=== PATIENT | female | born 1965 | race Caucasian/White ===

== ENCOUNTER 2022-02-19 16:46 | Outpatient (CLI) | payer OTHER ==
[2022-02-19 17:33] LABS: T4 (THYROXINE) 3.54 ug/dL (6.09-12.23)
[2022-02-19 17:36] LABS: THYROID STIMULATING HORMONE 0.46 uIU/mL (0.34-5.60)
[2022-02-19 17:37] LABS: FREE T3 2.86 pg/mL (2.5-3.9)
[2022-02-19 17:38] LABS: FREE T4 (FREE THYROXINE) 0.55 ng/dL (0.58-1.64)
== END 2022-02-19 16:47 | disposition home or self-care (01) ==
LOC: LAB 16:46
PROVIDERS: ATTEND Naturopath
DX: E06.3 Autoimmune thyroiditis (principal)
CPT/HCPCS: 36415; 84436; 84439; 84443; 84480; 84481; 86376